=== PATIENT | female | born 1955 | race African-American/Black ===

== ENCOUNTER 2022-03-19 12:26 | Emergency (ER) | payer OTHER ==
[~2022-03-19] VITALS: Ht 167.6 cm; Wt 81.6 kg
[2022-03-19 15:20] VITALS: BP 204/111
[2022-03-19] MEDS ORDERED: amLODIPine BESYLATE 5 MG TAB PO ONE (15:45)
== END 2022-03-19 16:38 | disposition home or self-care (01) ==
LOC: ER 12:26
DX: M25.562 Pain in left knee (principal); I16.0 Hypertensive urgency
CPT/HCPCS: 73562; 93971